=== PATIENT | male | born 1980 | race Caucasian/White ===

== ENCOUNTER 2017-02-15 09:53 | Emergency (ER) | payer BC ==
[~2017-02-15] VITALS: Ht 190.5 cm; Wt 131.0 kg
[2017-02-15 10:08] VITALS: TEMP 37.3; Ht 190.5 cm; Wt 131.0 kg
[2017-02-15 10:35] LABS: HEMATOCRIT 44.4 % (42-52); MEAN CELL VOLUME 87.7 fL (80-100); MEAN CORPUSCULAR HEMOGLOBIN 31.6 pg (25-34); MEAN PLATELET VOLUME 11.8 fL (7.4-10.4); PLATELET COUNT 241 K/uL (130-400); RED BLOOD COUNT 5.06 M/uL (4.7-6.1); WHITE BLOOD COUNT 5.95 K/uL (4.8-10.8)
[2017-02-15 10:43] LABS: PARTIAL THROMBOPLASTIN RATIO 1.1; PROTHROMBIN TIME (PATIENT) 10.8 SECONDS (9.0-12.0)
[2017-02-15 10:57] LABS: ALT/SGPT 39 U/L (12-78); BLOOD UREA NITROGEN 12 mg/dl (7-18); BUN/CREATININE RATIO 13.7 (10-20); CALCIUM 9.3 mg/dl (8.5-10.1); CARBON DIOXIDE 27 mmol/L (21-32); CHLORIDE 106 mmol/L (98-107); CREATININE 0.87 mg/dl (0.60-1.40); GLUCOSE 92 mg/dl (70-99); POTASSIUM 3.8 mmol/L (3.5-5.1); SODIUM 139 mmol/L (136-145)
[2017-02-15 11:02] LABS: ALB/GLOB RATIO 1.1 (0.9-2); ALKALINE PHOSPHATASE 55 U/L (45-117); AST/SGOT 32 U/L (15-37); CKMB/CK RATIO 0.8 (0-3.0)
[2017-02-15] MEDS ORDERED: SODIUM CHLORIDE 0.9% 1000ML 1,000 ML IV STA (11:02)
--- NOTE | 2017-02-15 11:08 | EMERGENCY ROOM VISIT NOTE ---
History First contact with patient: 10:11 Chief Complaint: CHEST PAIN Stated Complaint: CHEST PAINS, LIGHTHEADED Nursing Triage Summary: PT HERE WITH INTERMITTENT TWINGES OF CHEST DISCOMFORT X 3 WEEKS. PT STATES EXCESSIVE BURPING. DENIES ANY SOB, N/V History of Present Illness The patient is a 36 year old male who presents to the Emergency Room with complaints of intermittent chest pain. The patient states that for the last 3 weeks he has had intermittent chest pain. He states that he can be at rest or active. He states he notices it most at night. He states that he feels a very brief sharp pain in the chest. He states it never lasts more than a few seconds. He states that his left shoulder feels sore. He rates his discomfort as 7/10. He states that he notices the episodes 5-7 times a day. He has tried Excedrin. He has tried medication for reflux. He states he has also had some minimal diarrhea. He states he has been burping a lot. He denies any personal or family history of cardiac arrhythmia or coronary artery disease. He denies any falls or injuries. Review of Systems A 10 system review of systems was completed with positives and pertinent negatives listed in the HPI. Past Medical/Surgical History patient denies Social History Smoking Status: Never Smoker Housing Status: lives with family Current/Historical Medications No Active Prescriptions or Reported Meds Physical Exam Vital Signs Date Time Temp Pulse Resp B/P (MAP) Pulse Ox O2 Delivery O2 Flow Rate FiO2 02/15/17 13:02 78 16 157/104 98 02/15/17 12:08 74 02/15/17 11:05 97 Room Air 02/15/17 11:01 71 16 153/105 95 Room Air 02/15/17 10:13 81 02/15/17 10:08 37.3 79 16 145/102 97 Room Air Physical Exam VITALS: Vitals are noted on the nurse's note and reviewed by myself. Vital signs stable. GENERAL: This is a 36-year-old male, in no acute distress, nondiaphoretic, well- developed well-nourished. SKIN: The skin was without rashes, erythema, edema, or bruising. There is no tenting of the skin. Capillary reflex less than 2 seconds. HEAD: Normocephalic atraumatic. EARS: The external ears are normal in appearance. EYES: Pupils equal round and reactive to light and accommodation. Conjunctivae without injection, sclerae without icterus. Extraocular movements intact. NOSE: Patent, turbinates without inflammation or discharge. MOUTH: Mucous membranes moist. Tonsils are not enlarged. Pharynx without erythema or exudate. Uvula midline. Airway patent. Tongue does not deviate. NECK: Supple without nuchal rigidity. No lymphadenopathy. No thyromegaly. Cervical spine is nontender. No JVD. HEART: Regular rate and rhythm without murmurs gallops or rubs. LUNGS: Clear to auscultation bilaterally without wheezes, rales or rhonchi.. No retractions or accessory muscle use. ABDOMEN: Positive bowel sounds x 4. Soft, nontender, without masses or organomegaly. MUSCULOSKELETAL: No muscle atrophy, erythema, or edema noted. Full range of motion in all extremities. Normal gait. Strength 5/5 throughout. NEURO: Patient was alert and oriented to person place and time. No focal neurological deficits. Medical Decision & Procedures ER Provider Diagnostic Interpretation: CHEST ONE VIEW PORTABLE CLINICAL HISTORY: Atypical chest pain. Lightheadedness. COMPARISON STUDY: No previous studies for comparison. FINDINGS: The cardiac and mediastinal contours are normal. There is no evidence of focal pulmonary consolidation. There is no evidence of failure. No pleural effusions are visualized.[ An opacity at the level the left cardiophrenic angle is felt to represent a combination of fat pad and atelectatic change. IMPRESSION: No active disease in the chest. Laboratory Results 02/15/17 10:10 02/15/17 10:10 Test 02/15/17 10:10 Red Blood Count 5.06 M/uL (4.7-6.1) Mean Corpuscular Volume 87.7 fL (80-100) Mean Corpuscular Hemoglobin 31.6 pg (25-34) Mean Corpuscular Hemoglobin Concent 36.0 g/dl (32-36) RDW Standard Deviation 41.3 fL (36.4-46.3) RDW Coefficient of Variation 13.0 % (11.5-14.5) Mean Platelet Volume 11.8 fL (7.4-10.4) Prothrombin Time 10.8 SECONDS (9.0-12.0) Prothromb Time International Ratio 1.0 (0.9-1.1) Activated Partial Thromboplast Time 29.7 SECONDS (21.0-31.0) Partial Thromboplastin Ratio 1.1 D-Dimer < 190 ug/L FEU (0-500) Anion Gap 6.0 mmol/L (3-11) Est Creatinine Clear Calc Drug Dose 174.5 ml/min Estimated GFR () 130.5 Estimated GFR (Non- 112.6 BUN/Creatinine Ratio 13.7 (10-20) Calcium Level 9.3 mg/dl (8.5-10.1) Total Bilirubin 1.1 mg/dl (0.2-1) Aspartate Amino Transf (AST/SGOT) 32 U/L (15-37) Alanine Aminotransferase (ALT/SGPT) 39 U/L (12-78) Alkaline Phosphatase 55 U/L (45-117) Total Creatine Kinase 147 U/L (39-308) Creatine Kinase MB 1.2 ng/ml (0.5-3.6) Creatine Kinase MB Ratio 0.8 (0-3.0) Troponin I < 0.015 ng/ml (0-0.045) Total Protein 7.8 gm/dl (6.4-8.2) Albumin 4.1 gm/dl (3.4-5.0) Globulin 3.7 gm/dl (2.5-4.0) Albumin/Globulin Ratio 1.1 (0.9-2) Thyroid Stimulating Hormone (TSH) 1.410 uIu/ml (0.300-4.500) Medications Administered Medications (Trade) Dose Ordered Sig/Amaya Route Start Time Stop Time Status Last Admin Dose Admin Sodium Chloride 1,000 ml @ 999 mls/hr Q1H1M STAT IV 02/15/17 11:02 02/15/17 12:02 DC 02/15/17 11:15 999 MLS/HR Procedure The patient was monitored on a case monitor. I did review this with the monitor federal district clerk. The patient did have multiple PVCs during his stay but otherwise maintained a normal sinus rhythm. ECG Indication: chest pain Rate (beats per minute): 79 Rhythm: normal sinus Findings: no acute ischemic change Change: no significant change ED Course The patient was seen and examined. Previous visits were reviewed. The patient does not have a fever or leukocytosis. He does not have any significant electrolyte abnormalities. Cardiac enzymes are not elevated. TSH is within normal limits. INR is 1.0. D-dimer was negative. Chest x-ray does not reveal any acute abnormality The patient was hydrated normal saline solution 1 L The patient was noted to be hypertensive. His blood pressure was 145/102. When I reviewed previous documentation as far back as 2008, the patient had a similar blood pressure at that time. The patient states when he checked his blood pressure last night it was 143/83. I advised the patient to follow-up with his family doctor. He states that he has not been able to secure a timely appointment. I had case management speak with the patient and helped to make a timely follow-up appointment to discuss both the pain and the blood pressure. The patient has an occasional sharp pain that lasts only seconds in the left side of his chest. It is possible that he could be feeling the PVCs that were seen on the case monitor throughout his stay. There is no elevation in his cardiac enzymes. His TSH is within normal limits. He may need an outpatient Holter monitor and potentially echocardiogram indicated. He should follow-up with his family doctor regarding this. He should return to the ER if any worsening symptoms. The case was discussed with Dr. Hampton who agrees with the assessment and treatment plan. Medical Decision DIFFERENTIAL DIAGNOSIS: Aortic dissection, myocarditis, pericarditis, cervical disc disease, costochondritis, herpes zoster, rib fracture, pleuritis, pneumonia , pulmonary embolus, tension pneumothorax, anxiety disorder, somatoform disorder , choledocholithiasis, status, esophagitis, esophageal spasm, esophageal reflux , esophageal rupture, pancreatitis, peptic ulcer disease, cardiac ischemia, ST elevation [place], acute coronary syndrome, arrhythmia, coronary artery vasospasm. vavular heart disease, coronary artery disease, among others. Medication Reconcilliation Current Medication List: was personally reviewed by mo Blood Pressure Screening Patient's blood pressure: Elevated blood pressure Blood pressure disposition: Referred to PCP Impression Primary Impression: Substernal precordial chest pain Additional Impressions: PVC (premature ventricular contraction) Hypertension Departure Information Dispostion Home / Self-Care Condition GOOD Prescriptions No Active Prescriptions or Reported Meds Referrals Lucio Welch M.D. (PCP) Patient Instructions Hypertension Control, [facility] Animated Dynamics, Premature Ventricular Contract About Additional Instructions Follow up with your family doctor to discuss your blood pressure and the chest discomfort Return with any worsening symptoms, persistent chest pain Problem Qualifiers
--- NOTE | 2017-02-15 11:58 | DIAGNOSTIC IMAGING REPORT ---
CHEST ONE VIEW PORTABLE CLINICAL HISTORY: Atypical chest pain. Lightheadedness. COMPARISON STUDY: No previous studies for comparison. FINDINGS: The cardiac and mediastinal contours are normal. There is no evidence of focal pulmonary consolidation. There is no evidence of failure. No pleural effusions are visualized.[ An opacity at the level the left cardiophrenic angle is felt to represent a combination of fat pad and atelectatic change. IMPRESSION: No active disease in the chest. Electronically signed by: Oscar Easton M.D. 02/15/2017 11:57 AM Dictated Date/Time: 02/15/2017 11:57 AM
[2017-02-15 13:02] VITALS: BP 157/104; PULSE 78; O2SAT 98
== END 2017-02-15 13:03 | disposition home or self-care (01) ==
LOC: C.EDB 09:54
DX: R07.2 Precordial pain (principal); I49.3 Ventricular premature depolarization; I10 Essential (primary) hypertension